=== PATIENT | male | born 1985 | race African-American/Black ===

== ENCOUNTER 2020-04-28 12:59 | Inpatient (IN) | payer SELFPAY ==
[2020-04-28] VITALS (16 sets, daily range): BP systolic 125–166; BP diastolic 71–114; PULSE 100–126; RESP 14–23; TEMP 37.1–37.3; O2SAT 97–100; BMI 32.6
--- NOTE | 2020-04-28 13:07 | DI.RAD.S_ITS ---
PROCEDURE: XR CHEST 1V INDICATIONS: chest pain TECHNIQUE: One view of the chest was acquired. COMPARISON: None. FINDINGS: Surgical changes and devices: None. Lungs and pleura: Lungs are clear. No pleural effusions or pneumothorax. Mediastinum: Mediastinal contours appear normal. Heart size is normal. Bones and chest wall: No suspicious bony lesions. Overlying soft tissues appear unremarkable. IMPRESSION: No acute cardiopulmonary pathology. Dictated by: Bridger Elder M.D. on 04/28/2020 at 13:46 Approved by: Bridger Elder M.D. on 04/28/2020 at 13:46
[2020-04-28 13:21] LABS: Hematocrit 37.4 % (41-53); Hemoglobin 12.6 g/dL (13.5-17.5); Mean Corpuscular HGB Conc 33.7 % (30-36); Mean Corpuscular Hemoglobin 31.4 PG (26-34); Mean Corpuscular Volume 93.3 fL (80-100); Platelet Count 342 X10^3/uL (150-400); Red Blood Cell Count 4.01 X10^6/uL (4.5-5.9); Red Cell Distribution Width 12.2 % (11.6-14.8)
[2020-04-28 13:24] LABS: Add Manual Diff / Slide Review YES
[2020-04-28 13:31] LABS: INR 1.6 (0.9-1.3)
[2020-04-28 13:33] LABS: PTT Partial Thromboplastin Tim 34 SECONDS (26.4-36.2)
[2020-04-28 13:36] LABS: Alanine Aminotransferase 37 IU/L (<50); Albumin 4.4 g/dL (3.5-5.0); Albumin Globulin Ratio 1.2 (1.0-2.8); Alkaline Phosphatase 94 U/L (38-126); Aspartate Aminotransferase 36 IU/L (17-59); BUN Creatinine Ratio 11.4 (6-22); Bilirubin Total 2.6 mg/dL (0.2-1.3); Blood Urea Nitrogen 14 mg/dL (9-20); Calcium 9.9 mg/dL (8.4-10.2); Carbon Dioxide 23 mmol/L (22-32); Chloride 103 mmol/L (98-107); Creatine Kinase 140 U/L (55-170); Estimated Glomerular Filt Rate > 60.0 mL/min (>60); Globulin 3.8 g/dL (1.7-4.1); Glucose 120 mg/dL (70-100); HEMOLYSIS < 15 (0-50); Lipase 19 U/L (23-300); Potassium 4.1 mmol/L (3.4-5.1); Sodium 134 mmol/L (137-145); Total Protein 8.2 g/dL (6.3-8.2)
[2020-04-28 13:48] LABS: Troponin I < 0.012 ng/mL (0.01-0.034)
[2020-04-28 13:51] LABS: CKMB % Relative Index 0.4 % (1.5-5.0); Creatine Kinase MB 0.52 ng/mL (<2.37)
[2020-04-28 13:53] LABS: Lactate (Lactic Acid) 1.4 mmol/L (0.7-2.1)
--- NOTE | 2020-04-28 13:55 | ED_ITS ---
HPI - Chest Pain General Chief Complaint: Chest Pain Stated Complaint: 'feeling sick' Time Seen by Provider: 04/28/20 13:24 Source: patient Mode of arrival: Ambulatory Limitations: no limitations History of Present Illness HPI narrative: Patient is a 34-year-old healthy male who presents with generalized body aches and pain ongoing for last couple of days. He states that he has had an ongoing nonproductive cough for the past few days. Generalized body aches in all over pain started yesterday. He has been taking TheraFlu but he did not take any today. He overall feels extremely weak and fatigued with body aches all over. He denies any fever or chills. He has a decrease in appetite. He has no abdominal pain nausea vomiting or diarrhea. No recent travel. No painful or frequent urination. No headache or neck pain. Related Data Allergies Allergy/AdvReac Type Severity Reaction Status Date / Time No Known Drug Allergies Allergy Verified 04/28/20 13:04 Review of Systems Review of Systems ROS Unobtainable: All systems reviewed & are unremarkable except as noted in HPI and below Constitutional Constitutional: Reports body ache(s), Reports chills, Reports fatigue and Reports poor appetite Eyes Eyes: Denies change in vision, Denies eye discharge, Denies irritation and Alfred es loss of vision ENT Ears, Nose, Mouth, and Throat: Denies vertigo and Denies dizziness Cardiovascular Cardiovascular: Denies chest pain, Denies irregular heart rhythm, Denies lightheadedness, Denies palpitations and Denies orthopnea Respiratory Respiratory: Reports cough Gastrointestinal Gastrointestinal: Denies abdominal pain, Denies change in bowel habits, Denies diarrhea, Denies nausea and Denies vomiting Integumentary/Breasts Skin/Breast: Denies pruritus, Denies erythema, Denies rash and Denies wounds Neurologic Neurologic: Denies vertigo, Denies dizziness and Denies loss of vision Endocrine Endocrine: Reports fatigue and Denies palpitations Patient History Social History household members: none Smoking Status: Current every day smoker Smoking Status: Current every day smoker alcohol intake frequency: 3 or more drinks per day Substance Use Type: does not use Exam Initial Vital Signs Initial Vital Signs: Vital Signs Temperature 98.8 F 04/28/20 13:04 Pulse Rate 126 H 04/28/20 13:04 Respiratory Rate 15 04/28/20 13:04 Blood Pressure 148/82 H 04/28/20 13:04 Pulse Oximetry 100 04/28/20 13:04 GENERAL: The patient overall does not appear to feel well and in no acute distress. HEENT: Head atraumatic,EOMI, pupils reactive, face symmetric, moist mucous membranes , negative Kernig's and Brudzinski CARDIOVASCULAR: Tachycardic regular RESPIRATORY: Breath sounds equal bilaterally, no wheezes rales or rhonchi. ABDOMEN: Soft, nontender. Normoactive bowel sounds all 4 quadrants. No guarding or rebound. EXTREMITIES: Normal range of motion, no clubbing or edema. Neurovascularly intact NEUROLOGICAL: Alert and oriented x4.Normal gait and speech SKIN: Warm, dry, no laceration, no petechiae, no rashes or lesions. Scores CURB-65 Confusion: No BUN >19mg/dL (>7mmol/L): No Respiratory rate greater or equal to 30: No SBP <90mmHg or DBP less or equal to 60mmHg: No Age 65 or Older: No CURB-65 Total: 0 Score 0-1 Outpatient care, Score 2 Inpt vs. Obs, Score 3 or over Inpt admit with ICU for score of 4-5 GCS [place] coma scale eye opening: Spontaneous [place] coma scale verbal response: Orientated Nathaniel coma scale motor response: Obey commands [place] coma scale total score: 15 qSOFA Altered Mental Status (GCS <15): No Respiratory rate greater than/equal to 22: No Systolic blood pressure less than or equal to 100: No qSOFA Total: 0 0-1 Not High Risk 1-3 High risk SOFA SaO2/FIO2: 221-301 Platelets: >= 150 Bilirubin: 2.0-5.9 mg/dL Hypotension: MAP >= 70 mmHg [place] Coma Scale: 15 Renal: Creatinine 1.2-1.9 mg/dL SOFA Score: 4 Course Orders Ordered: ED Orders 04/28/20 13:07 XR chest 1V Stat EKG-12 Lead Stat 04/28/20 13:10 Complete Blood Count AUTO DIFF Stat Comprehensive Metabolic Panel Stat Lactate (Lactic Acid) Stat Lipase Stat Partial Thromboplastin Time Stat Procalcitonin Stat Prothrombin Time INR Stat Troponin & CK Cardiac Panel Stat 04/28/20 13:35 COVID19 Stat 04/28/20 13:38 Blood Culture Stat 04/28/20 15:23 CT chest abd pel w con Stat 04/28/20 15:27 Respiratory Panel (Film Array) Stat Urinalysis and Microscopic Stat Urine Drug Screen, Rapid Stat Acetaminophen (Acetaminophen 325 Mg Tablet) 650 mg PO Q6HR PRN PRN Reason: Fever/Mild Pain (1-3) Al Hydrox/Mg Hydrox/Simethicone (Mag Hydrox/Alum/Simeth 30 Ml Udc) 30 ml PO Q6HR PRN PRN Reason: Dyspepsia Bisacodyl (Bisacodyl 10 Mg Supp) 10 mg MI DAILY PRN PRN Reason: Constipation Calcium Carbonate (Calcium Carbonate 500 Mg Tab) 1,000 mg PO Q4HR PRN PRN Reason: Dyspepsia Heparin Sodium (Porcine) (Heparin 5,000 Unit/Ml Vial) 5,000 unit SUBCUT BID JUSTIN Sodium Chloride (Normal Saline 0.9%) 1,000 mls @ 150 mls/hr IV CONT JUSTIN Last Infusion: 04/28/20 17:55 Dose: 150 mls/hr Documented by: Infusion: 04/28/20 16:51 Dose: 0 mls/hr Documented by: Admin: 04/28/20 16:39 Dose: 150 mls/hr Documented by: VENANCIO Piperacillin/Tazobactam/Dextrose (Zosyn) 3.375 gm in 50 mls @ 100 mls/hr IV Q6H JUSTIN Vancomycin HCl (Vancomycin) 1,000 mg in 200 mls @ 200 mls/hr IV Q8H JUSTIN Magnesium Hydroxide (Magnesium Hydroxide 30 Ml Udc) 30 ml PO DAILY PRN PRN Reason: Constipation Naloxone HCl (Naloxone 0.4 Mg/Ml Vial) 0.2 mg IV Q2MIN PRN PRN Reason: Opiate Reversal Ondansetron HCl (Ondansetron 4 Mg/2 Ml Inj) 4 mg IV Q8HR PRN PRN Reason: Nausea And Vomiting Promethazine HCl (Promethazine 12.5 Mg Supp) 12.5 mg MI Q6HR PRN PRN Reason: Nausea And Vomiting Vancomycin HCl (Vancomycin Trough) 1 request MIS 1630 [facility] Stop: 04/29/20 16:31 Discontinued Medications Albuterol (Albuterol Hfa Mdi 60 Puff/8 Gm Inhaler) 2 puff INH NOW ONE Stop: 04/28/20 17:23 Last Admin: 04/28/20 17:38 Dose: 2 puff Documented by: [facility] Sodium Chloride (Normal Saline 0.9%) 1,000 mls @ 1,000 mls/hr IV BOLUS ONE Stop: 04/28/20 15:18 Last Infusion: 04/28/20 16:00 Dose: 0 mls/hr Documented by: Admin: 04/28/20 14:35 Dose: 1,000 mls/hr Documented by: VENANCIO Piperacillin/Tazobactam/Dextrose (Zosyn) 3.375 gm in 50 mls @ 100 mls/hr IV NOW ONE Stop: 04/28/20 14:50 Last Infusion: 04/28/20 15:07 Dose: 0 mls/hr Documented by: Admin: 04/28/20 14:35 Dose: 100 mls/hr Documented by: VENANCIO Sodium Chloride (Normal Saline 0.9%) 1,000 mls @ 1,000 mls/hr IV BOLUS ONE Stop: 04/28/20 16:30 Last Infusion: 04/28/20 17:55 Dose: 0 mls/hr Documented by: Admin: 04/28/20 16:11 Dose: 1,000 mls/hr Documented by: VENANCIO Vancomycin HCl/Dextrose (Vancomycin) 1,500 mg in 300 mls @ 200 mls/hr IV NOW ONE Stop: 04/28/20 18:31 Last Admin: 04/28/20 17:19 Dose: 200 mls/hr Documented by: VENANCIO Ketorolac Tromethamine (Ketorolac 60 Mg/2 Ml Vial) 30 mg IV NOW ONE Stop: 04/28/20 16:34 Last Admin: 04/28/20 16:38 Dose: 30 mg Documented by: VENANCIO Morphine Sulfate (Morphine 4 Mg/Ml Inj) 4 mg IV NOW ONE Stop: 04/28/20 14:20 Last Admin: 04/28/20 14:35 Dose: 4 mg Documented by: VENANCIO Vital Signs Vital signs: Vital Signs - 8 hr 04/28/20 13:04 04/28/20 14:39 12/31/20 15:00 Temperature 98.8 F Pulse Rate 126 H 113 H Respiratory Rate 15 15 Blood Pressure 148/82 H 149/103 H 126/90 Pulse Oximetry 100 100 99 04/28/20 15:30 04/28/20 15:49 04/28/20 16:00 Temperature Pulse Rate 112 H 111 H 109 H Respiratory Rate 18 16 18 Blood Pressure 139/85 125/71 Pulse Oximetry 100 100 99 04/28/20 16:30 04/28/20 16:48 04/28/20 17:00 Temperature Pulse Rate 107 H 105 H 107 H Respiratory Rate 23 18 Blood Pressure 165/97 H 166/104 H Pulse Oximetry 99 99 99 MDM - Chest Pain Lab Data Attestation: I reviewed the patient's lab results. Result diagrams: 04/28/20 13:10 04/28/20 13:10 Labs: Lab Results 04/28/20 04/28/20 04/28/20 Range/Units 13:10 13:10 13:10 WBC 31.0 H* (4.5-11.0) X10^3/uL RBC 4.01 L (4.5-5.9) X10^6/uL Hgb 12.6 L (13.5-17.5) g/dL Hct 37.4 L (41-53) % MCV 93.3 (80-100) fL MCH 31.4 (26-34) PG MCHC 33.7 (30-36) % RDW 12.2 (11.6-14.8) % Plt Count 342 (150-400) X10^3/uL Neut % (Auto) Not Reportable Lymph % (Auto) Not Reportable Long % (Auto) Not Reportable Eos % (Auto) Not Reportable Baso % (Auto) Not Reportable Lymph # (Auto) Not Reportable Long # (Auto) Not Reportable Baso # (Auto) Not Reportable Total Counted 100 Seg Neutrophils % 72.0 H (38-70) % Band Neutrophils % 13.0 H (3-7) % Lymphocytes % (Manual) 4.0 L (25-45) % Monocytes % (Manual) 9.0 (2-11) % Metamyelocytes % 2.0 H (-0) % Neutrophils # (Manual) 42753 H (3560-6051) /uL RBC Morphology Normal morphology PT 18.0 H (10.1-12.7) SECONDS INR 1.6 H (0.9-1.3) APTT 34 (26.4-36.2) SECONDS Sodium 134 L (137-145) mmol/L Potassium 4.1 (3.4-5.1) mmol/L Chloride 103 (98-107) mmol/L Carbon Dioxide 23 (22-32) mmol/L BUN 14 (9-20) mg/dL Creatinine 1.23 (0.66-1.25) mg/dL Estimated GFR > 60.0 (>60) mL/min BUN/Creatinine Ratio 11.4 (6-22) Glucose 120 H (70-100) mg/dL Lactate (0.7-2.1) mmol/L Calcium 9.9 (8.4-10.2) mg/dL Total Bilirubin 2.6 H (0.2-1.3) mg/dL AST 36 (17-59) IU/L ALT 37 (<50) IU/L Alkaline Phosphatase 94 (38-126) U/L Total Creatine Kinase 140 (55-170) U/L CK-MB (CK-2) 0.52 (<2.37) ng/mL CK-MB (CK-2) Rel Index 0.4 L (1.5-5.0) % Troponin I < 0.012 (0.01-0.034) ng/mL Total Protein 8.2 (6.3-8.2) g/dL Albumin 4.4 (3.5-5.0) g/dL Globulin 3.8 (1.7-4.1) g/dL Albumin/Globulin Ratio 1.2 (1.0-2.8) Lipase 19 L (23-300) U/L Procalcitonin (<0.5) ng/mL Urine Color Urine Appearance Urine pH (4.5-8.0) Ur Specific [place] (1.000-1.035) Urine Protein (Negative) Urine Glucose (UA) (Negative) g/dL Urine Ketones (NEGATIVE) Urine Occult Blood (Negative) Urine Nitrate (Negative) Urine Bilirubin (NEGATIVE) Urine Urobilinogen (0.2) E.U./dL Ur Leukocyte Esterase (NEGATIVE) Urine RBC (0-5/HPF) Urine WBC (0-5/HPF) Urine Bacteria (None) Ur Culture Indicated? Micro UA Comment U Opiates 300ng/mL cut (Negative) Ur Oxycodone Screen (Negative) Urine Methadone Screen (Negative) Ur Barbiturates Screen (Negative) U Tricyclic Antidepress (Negative) Ur Phencyclidine Scrn (Negative) Ur Amphetamines Screen (Negative) U Methamphetamines Scrn (Negative) Ur MDMA Scrn (Ecstasy) (Negative) U Benzodiazepines Scrn (Negative) Urine Cocaine Screen (Negative) U Marijuana (THC) Screen (Negative) Chlamy pneumoniae PCR (Not Detect) Adenovirus (PCR) (Not Detect) B.parapertussis DNA PCR (Not Detect) Coronavirus OC43 (PCR) (Not Detect) Coronavirus HKU1 (PCR) (Not Detect) Coronavirus 229E (PCR) (Not Detect) SARS-CoV-2 (PCR) (Negative) Coronavirus NL63 (PCR) (Not Detect) Human Metapneumovir PCR (Not Detect) Influenza Type A (PCR) (Not Detect) Influenza Type B (PCR) (Not Detect) M. pneumoniae (PCR) (Not Detect) Parainfluenza 1 (PCR) (Not Detect) Parainfluenza 2 (PCR) (Not Detect) Parainfluenza 3 (PCR) (Not Detect) Parainfluenza 4 (PCR) (Not Detect) RSV (PCR) (Not Detect) Entero/Rhino (PCR) (Not Detect) 04/28/20 04/28/20 04/28/20 Range/Units 13:10 13:10 13:35 WBC (4.5-11.0) X10^3/uL RBC (4.5-5.9) X10^6/uL Hgb (13.5-17.5) g/dL Hct (41-53) % MCV (80-100) fL MCH (26-34) PG MCHC (30-36) % RDW (11.6-14.8) % Plt Count (150-400) X10^3/uL Neut % (Auto) Lymph % (Auto) Long % (Auto) Eos % (Auto) Baso % (Auto) Lymph # (Auto) Long # (Auto) Baso # (Auto) Total Counted Seg Neutrophils % (38-70) % Band Neutrophils % (3-7) % Lymphocytes % (Manual) (25-45) % Monocytes % (Manual) (2-11) % Metamyelocytes % (-0) % Neutrophils # (Manual) (6931-6645) /uL RBC Morphology PT (10.1-12.7) SECONDS INR (0.9-1.3) APTT (26.4-36.2) SECONDS Sodium (137-145) mmol/L Potassium (3.4-5.1) mmol/L Chloride (98-107) mmol/L Carbon Dioxide (22-32) mmol/L BUN (9-20) mg/dL Creatinine (0.66-1.25) mg/dL Estimated GFR (>60) mL/min BUN/Creatinine Ratio (6-22) Glucose (70-100) mg/dL Lactate 1.4 (0.7-2.1) mmol/L Calcium (8.4-10.2) mg/dL Total Bilirubin (0.2-1.3) mg/dL AST (17-59) IU/L ALT (<50) IU/L Alkaline Phosphatase (38-126) U/L Total Creatine Kinase (55-170) U/L CK-MB (CK-2) (<2.37) ng/mL CK-MB (CK-2) Rel Index (1.5-5.0) % Troponin I (0.01-0.034) ng/mL Total Protein (6.3-8.2) g/dL Albumin (3.5-5.0) g/dL Globulin (1.7-4.1) g/dL Albumin/Globulin Ratio (1.0-2.8) Lipase (23-300) U/L Procalcitonin 2.92 H (<0.5) ng/mL Urine Color Urine Appearance Urine pH (4.5-8.0) Ur Specific [place] (1.000-1.035) Urine Protein (Negative) Urine Glucose (UA) (Negative) g/dL Urine Ketones (NEGATIVE) Urine Occult Blood (Negative) Urine Nitrate (Negative) Urine Bilirubin (NEGATIVE) Urine Urobilinogen (0.2) E.U./dL Ur Leukocyte Esterase (NEGATIVE) Urine RBC (0-5/HPF) Urine WBC (0-5/HPF) Urine Bacteria (None) Ur Culture Indicated? Micro UA Comment U Opiates 300ng/mL cut (Negative) Ur Oxycodone Screen (Negative) Urine Methadone Screen (Negative) Ur Barbiturates Screen (Negative) U Tricyclic Antidepress (Negative) Ur Phencyclidine Scrn (Negative) Ur Amphetamines Screen (Negative) U Methamphetamines Scrn (Negative) Ur MDMA Scrn (Ecstasy) (Negative) U Benzodiazepines Scrn (Negative) Urine Cocaine Screen (Negative) U Marijuana (THC) Screen (Negative) Chlamy pneumoniae PCR (Not Detect) Adenovirus (PCR) (Not Detect) B.parapertussis DNA PCR (Not Detect) Coronavirus OC43 (PCR) (Not Detect) Coronavirus HKU1 (PCR) (Not Detect) Coronavirus 229E (PCR) (Not Detect) SARS-CoV-2 (PCR) Negative (Negative) Coronavirus NL63 (PCR) (Not Detect) Human Metapneumovir PCR (Not Detect) Influenza Type A (PCR) (Not Detect) Influenza Type B (PCR) (Not Detect) M. pneumoniae (PCR) (Not Detect) Parainfluenza 1 (PCR) (Not Detect) Parainfluenza 2 (PCR) (Not Detect) Parainfluenza 3 (PCR) (Not Detect) Parainfluenza 4 (PCR) (Not Detect) RSV (PCR) (Not Detect) Entero/Rhino (PCR) (Not Detect) 04/28/20 04/28/20 04/28/20 Range/Units 15:27 15:27 15:27 WBC (4.5-11.0) X10^3/uL RBC (4.5-5.9) X10^6/uL Hgb (13.5-17.5) g/dL Hct (41-53) % MCV (80-100) fL MCH (26-34) PG MCHC (30-36) % RDW (11.6-14.8) % Plt Count (150-400) X10^3/uL Neut % (Auto) Lymph % (Auto) Long % (Auto) Eos % (Auto) Baso % (Auto) Lymph # (Auto) Long # (Auto) Baso # (Auto) Total Counted Seg Neutrophils % (38-70) % Band Neutrophils % (3-7) % Lymphocytes % (Manual) (25-45) % Monocytes % (Manual) (2-11) % Metamyelocytes % (-0) % Neutrophils # (Manual) (9324-4268) /uL RBC Morphology PT (10.1-12.7) SECONDS INR (0.9-1.3) APTT (26.4-36.2) SECONDS Sodium (137-145) mmol/L Potassium (3.4-5.1) mmol/L Chloride (98-107) mmol/L Carbon Dioxide (22-32) mmol/L BUN (9-20) mg/dL Creatinine (0.66-1.25) mg/dL Estimated GFR (>60) mL/min BUN/Creatinine Ratio (6-22) Glucose (70-100) mg/dL Lactate (0.7-2.1) mmol/L Calcium (8.4-10.2) mg/dL Total Bilirubin (0.2-1.3) mg/dL AST (17-59) IU/L ALT (<50) IU/L Alkaline Phosphatase (38-126) U/L Total Creatine Kinase (55-170) U/L CK-MB (CK-2) (<2.37) ng/mL CK-MB (CK-2) Rel Index (1.5-5.0) % Troponin I (0.01-0.034) ng/mL Total Protein (6.3-8.2) g/dL Albumin (3.5-5.0) g/dL Globulin (1.7-4.1) g/dL Albumin/Globulin Ratio (1.0-2.8) Lipase (23-300) U/L Procalcitonin (<0.5) ng/mL Urine Color Yellow Urine Appearance Clear Urine pH 7.0 (4.5-8.0) Ur Specific [place] <=1.005 (1.000-1.035) Urine Protein Negative (Negative) Urine Glucose (UA) Negative (Negative) g/dL Urine Ketones Negative (NEGATIVE) Urine Occult Blood Negative (Negative) Urine Nitrate Negative (Negative) Urine Bilirubin Negative (NEGATIVE) Urine Urobilinogen 0.2 (0.2) E.U./dL Ur Leukocyte Esterase Negative (NEGATIVE) Urine RBC None seen (0-5/HPF) Urine WBC None seen (0-5/HPF) Urine Bacteria None seen (None) Ur Culture Indicated? Cult not indicated Micro UA Comment Microscopic normal U Opiates 300ng/mL cut Positive H (Negative) Ur Oxycodone Screen Negative (Negative) Urine Methadone Screen Negative (Negative) Ur Barbiturates Screen Negative (Negative) U Tricyclic Antidepress Negative (Negative) Ur Phencyclidine Scrn Negative (Negative) Ur Amphetamines Screen Positive H (Negative) U Methamphetamines Scrn Positive H (Negative) Ur MDMA Scrn (Ecstasy) Negative (Negative) U Benzodiazepines Scrn Negative (Negative) Urine Cocaine Screen Negative (Negative) U Marijuana (THC) Screen Negative (Negative) Chlamy pneumoniae PCR Not detected (Not Detect) Adenovirus (PCR) Not detected (Not Detect) B.parapertussis DNA PCR Not detected (Not Detect) Coronavirus OC43 (PCR) Not detected (Not Detect) Coronavirus HKU1 (PCR) Not detected (Not Detect) Coronavirus 229E (PCR) Not detected (Not Detect) SARS-CoV-2 (PCR) Not detected (Negative) Coronavirus NL63 (PCR) Not detected (Not Detect) Human Metapneumovir PCR Not detected (Not Detect) Influenza Type A (PCR) Not detected (Not Detect) Influenza Type B (PCR) Not detected (Not Detect) M. pneumoniae (PCR) Not detected (Not Detect) Parainfluenza 1 (PCR) Not detected (Not Detect) Parainfluenza 2 (PCR) Not detected (Not Detect) Parainfluenza 3 (PCR) Not detected (Not Detect) Parainfluenza 4 (PCR) Not detected (Not Detect) RSV (PCR) Not detected (Not Detect) Entero/Rhino (PCR) Not detected (Not Detect) Imaging Data Chest x-ray: Radiologist's Impression: PROCEDURE: XR CHEST 1V INDICATIONS: chest pain TECHNIQUE: One view of the chest was acquired. COMPARISON: None. FINDINGS: Surgical changes and devices: None. Lungs and pleura: Lungs are clear. No pleural effusions or pneumothorax. Mediastinum: Mediastinal contours appear normal. Heart size is normal. Bones and chest wall: No suspicious bony lesions. Overlying soft tissues appear unremarkable. IMPRESSION: No acute cardiopulmonary pathology. Dictated by: Bridger Elder M.D. on 04/28/2020 at 13:46 CT scan - chest: Radiologist's Impression: PROCEDURE: CT CHEST ABD PEL W CON INDICATIONS: fever high WBC TECHNIQUE: After the administration of intravenous contrast, 5 mm thick sections acquired from the lung apices to the symphysis. 5 mm coronal and sagittal reformats were perfor med, with additional 7 mm MIP reformats through the lungs. For radiation dose reduction, the following was used: automated exposure control, adjustment of mA and/or kV according to patient size. COMPARISON: None. FINDINGS: Image quality: Excellent. CHEST: Lungs and pleura: Moderate to large airspace opacity measures 6.9 x 6.7 cm in size is seen in medial aspect of right lower lobe/right retrocardiac region extending to right infrahilar region. Left lung is clear. No pleural effusions or pneumothorax. Central and peripheral airways appear patent and normal in caliber. Mediastinum: Heart size is normal. No pericardial effusion. Enlarged mediastinal and right hilar lymph nodes are seen measures up to 1 cm in short axis diameter. Thoracic aorta and central pulmonary arteries are normal in size. Esophagus is normal in caliber. No hiatal hernia. Chest wall: No axillary or supraclavicular adenopathy by size criteria. Subcentimeter bilateral axillary lymph nodes are seen. Thyroid gland is within normal limits. ABDOMEN: Solid organs: Liver is normal in size and enhancement. Mild hepatic steatosis is seen. No discrete hepatic lesion. Gallbladder is within normal limits. Biliary system is non dilated. Pancreas enhances normally. Spleen is normal in size and enhancement. No adrenal nodules. Kidneys demonstrate normal size and enhancement, without hydronephrosis. Peritoneum and bowel: Bowel loops demonstrate normal wall thickness and yasemin iber. No free fluid or air. Appendix is visualized and is within normal limits. Nodes and vessels: No retroperitoneal or mesenteric adenopathy by size criteria. Aorta and inferior vena cava are normal in size. Miscellaneous: No ventral hernias. PELVIS: Genitourinary: Bladder wall thickness is normal. Miscellaneous: No inguinal hernias or adenopathy. Bones: No suspicious bony lesions. No vertebral body compression fractures. IMPRESSION: 1. Moderate to large sized airspace opacity in medial right lower lobe/right retrocardiac space extending to right infrahilar region suggestive of right lower lobe infiltrate. Left lung is clear. No pleural effusion or pneumothorax. Airway is patent. 2. Enlarged mediastinal and right hilar lymph nodes suggestive of reactive i nflammatory nodes. 3. No acute inflammatory process is seen in abdomen or pelvis. No free fluid or free air. Normal appendix. 4. Hepatic steatosis. Dictated by: Bridger Elder M.D. on 04/28/2020 at 15:55 ECG Data Attestation: I personally reviewed and interpreted this ECG as follows: Prior ECG tracings: not available for review Interpretation: Sinus tachycardia rate [address] changes or T-wave inversions no priors to compare MDM Narrative Medical decision making narrative: The patient is persistently tachycardic but remains afebrile. His heart rate does improve with IV fluids and pain medicatio ns. He is found to have significant leukocytosis of 30,000 and elevated procalcitonin. A chest x-ray did not show any sign of pneumonia although her signs and symptoms were suspicious. CT does confirm right lower lobe pneumonia. He has no evidence of meningitis or other infectious etiology. He is started on Zosyn and vancomycin. He does deny methamphetamine use but he is positive in his drug screen for methamphetamine. He was given a dose of morphine in the ED to help with his pains. Dr. coto accepts patient for admission Discharge Plan Departure Patient Disposition: Admitted As Inpatient Clinical Impression: Pneumonia Qualifiers: Pneumonia type: due to unspecified organism Laterality: right Lung location: lower lobe of lung Qualified Code(s): J18.9 - Pneumonia, unspecified organism Admit Date/Time: 04/28/20 17:16 Admit Provider: Leslye Coto
[2020-04-28 13:57] LABS: COVID19 -Nasal RAPID Negative (Negative)
[2020-04-28 14:06] LABS: Neutrophils Absolute Manual 26350 /uL (3000-5900); Total Cells Counted 100
[2020-04-28 14:08] LABS: RBC Morphology Normal Morphology
[2020-04-28 14:14] LABS: Procalcitonin 2.92 ng/mL (<0.5)
[2020-04-28] MEDS: SODIUM CHLORIDE 0.9% 1,000 ML 1000 ML IV ×2 (14:35→16:11)
[2020-04-28] MEDS: MORPHINE 4 MG/ML INJ IV (14:35)
[2020-04-28] MEDS: PIPERACILLIN-TAZO 3.375 GM/50 ML FROZ.PIGGY IV ×2 (14:35→21:34)
--- NOTE | 2020-04-28 15:23 | DI.CT.S_ITS ---
PROCEDURE: CT CHEST ABD PEL W CON INDICATIONS: fever high WBC TECHNIQUE: After the administration of intravenous contrast, 5 mm thick sections acquired from the lung apices to the symphysis. 5 mm coronal and sagittal reformats were performed, with additional 7 mm MIP reformats through the lungs. For radiation dose reduction, the following was used: automated exposure control, adjustment of mA and/or kV according to patient size. COMPARISON: None. FINDINGS: Image quality: Excellent. CHEST: Lungs and pleura: Moderate to large airspace opacity measures 6.9 x 6.7 cm in size is seen in medial aspect of right lower lobe/right retrocardiac region extending to right infrahilar region. Left lung is clear. No pleural effusions or pneumothorax. Central and peripheral airways appear patent and normal in caliber. Mediastinum: Heart size is normal. No pericardial effusion. Enlarged mediastinal and right hilar lymph nodes are seen measures up to 1 cm in short axis diameter. Thoracic aorta and central pulmonary arteries are normal in size. Esophagus is normal in caliber. No hiatal hernia. Chest wall: No axillary or supraclavicular adenopathy by size criteria. Subcentimeter bilateral axillary lymph nodes are seen. Thyroid gland is within normal limits. ABDOMEN: Solid organs: Liver is normal in size and enhancement. Mild hepatic steatosis is seen. No discrete hepatic lesion. Gallbladder is within normal limits. Biliary system is non dilated. Pancreas enhances normally. Spleen is normal in size and enhancement. No adrenal nodules. Kidneys demonstrate normal size and enhancement, without hydronephrosis. Peritoneum and bowel: Bowel loops demonstrate normal wall thickness and caliber. No free fluid or air. Appendix is visualized and is within normal limits. Nodes and vessels: No retroperitoneal or mesenteric adenopathy by size criteria. Aorta and inferior vena cava are normal in size. Miscellaneous: No ventral hernias. PELVIS: Genitourinary: Bladder wall thickness is normal. Miscellaneous: No inguinal hernias or adenopathy. Bones: No suspicious bony lesions. No vertebral body compression fractures. IMPRESSION: 1. Moderate to large sized airspace opacity in medial right lower lobe/right retrocardiac space extending to right infrahilar region suggestive of right lower lobe infiltrate. Left lung is clear. No pleural effusion or pneumothorax. Airway is patent. 2. Enlarged mediastinal and right hilar lymph nodes suggestive of reactive inflammatory nodes. 3. No acute inflammatory process is seen in abdomen or pelvis. No free fluid or free air. Normal appendix. 4. Hepatic steatosis. Dictated by: Bridger Elder M.D. on 04/28/2020 at 15:55 Approved by: Bridger Elder M.D. on 04/28/2020 at 16:05
[2020-04-28 15:42] LABS: Bacteria Urine None Seen; RBC Urine None Seen (0-5/HPF); WBC Urine None Seen (0-5/HPF)
[2020-04-28 15:45] LABS: Appearance Urine UA CLEAR; Bilirubin Urine UA NEGATIVE (NEGATIVE); Color Urine UA YELLOW; Glucose Urine UA NEGATIVE (Negative); Ketones Urine UA NEGATIVE (NEGATIVE); Leukocyte Esterase Urine UA NEGATIVE (NEGATIVE); Nitrite Urine UA NEGATIVE (Negative); Occult Blood Urine UA NEGATIVE (Negative); Protein Urine UA NEGATIVE (Negative); Specific Gravity Urine UA <=1.005 (1.000-1.035); Urobilinogen Urine UA 0.2 E.U./dL (0.2)
[2020-04-28 15:47] LABS: Culture Indicated Urine Cult Not Indicated; Urine Comments Microscopic Normal
--- NOTE | 2020-04-28 16:07 | PC.NURSE ---
patient complains of tenderness on the right side of his neck that radiates down to his right collar bone and right pectoral muscle. There is noticeable swelling with associated tenderness medial to his right clavicle. He states that he does not have any known injury to this area.
--- NOTE | 2020-04-28 16:16 | PC.NURSE ---
the patient also states that his bilateral flanks are aching and the aching goes down his legs on both side. He has no known injuries.
[2020-04-28] MEDS: KETOROLAC 60 MG/2 ML VIAL 30 MG IV (16:38)
[2020-04-28] MEDS: SODIUM CHLORIDE 0.9% 1,000 ML 150 ML IV (16:39)
[2020-04-28 16:56] LABS: Adenovirus Not Detected (Not Detect); Bordetella pertussis Not Detected (Not Detect); Chlamydophila pneumoniae Not Detected (Not Detect); Coronavirus 229E Not Detected (Not Detect); Coronavirus HKU1 Not Detected (Not Detect); Coronavirus NL 63 Not Detected (Not Detect); Coronavirus OC43 Not Detected (Not Detect); Human Metapneumovirus Not Detected (Not Detect); Human Rhinovirus/Enterovirus Not Detected (Not Detect); Influenza A Not Detected (Not Detect); Influenza B Not Detected (Not Detect); Mycoplasma pneumoniae Not Detected (Not Detect); Parainfluenza Virus 1 Not Detected (Not Detect); Parainfluenza Virus 2 Not Detected (Not Detect); Parainfluenza Virus 3 Not Detected (Not Detect); Parainfluenza Virus 4 Not Detected (Not Detect); Respiratory Syncytial Virus Not Detected (Not Detect); SARS- CoV-2 Not Detected (Not Detecte)
[2020-04-28] MEDS: VANCOMYCIN 1,500 MG/300 ML PIGGYBACK 200 MG IV (17:19)
[2020-04-28] MEDS: ALBUTEROL HFA MDI 60 PUFF/8 GM INHALER INH (17:38)
[2020-04-28 17:39] LABS: UR Morphine/Opiate cutoff 300 Positive (Negative); Ur Creatinine Normal (Normal); Ur Specific Gravity Normal (Normal); Urine Amphetamines Positive (Negative); Urine Barbiturates Negative (Negative); Urine Benzodiazepines Negative (Negative); Urine Cocaine Negative (Negative); Urine MDMA Negative (Negative); Urine Methadone Negative (Negative); Urine Methamphetamines Positive (Negative); Urine Oxycodone Negative (Negative); Urine Phencyclidine Negative (Negative); Urine Tetrahydrocannabinol Negative (Negative); Urine Tricyclic Antidepressant Negative (Negative); Urine pH Normal (Normal)
[2020-04-28] MEDS: HEPARIN 5,000 UNIT/ML VIAL 5000 UNIT SUBCUT (21:34)
[2020-04-28] MEDS: HYDROCODONE/ACET 5/325 TABLET 2 TAB PO (21:49)
[2020-04-28] MEDS: MORPHINE 2 MG/ML INJ IV (23:37)
[2020-04-29] VITALS (15 sets, daily range): BP systolic 150–188; BP diastolic 34–132; PULSE 86–118; RESP 16–24; TEMP 36.3–37.1; O2SAT 95–99
[2020-04-29] MEDS: VANCOMYCIN 1,000 MG/200 ML PIGGYBACK 200 MG IV ×3 (00:33→17:02)
[2020-04-29] MEDS: PIPERACILLIN-TAZO 3.375 GM/50 ML FROZ.PIGGY IV ×4 (01:48→20:57)
[2020-04-29] MEDS: LORazepam 2 MG/ML INJ IV (03:18)
[2020-04-29] MEDS: HYDROCODONE/ACET 5/325 TABLET 2 TAB PO ×3 (03:18→21:28)
[2020-04-29] MEDS: SODIUM CHLORIDE 0.9% 1,000 ML 150 ML IV ×2 (03:26→13:16)
--- NOTE | 2020-04-29 04:59 | PM.HP.1 ---
History of Present Illness History of Present Illness Chief complaint: 'feeling sick' Narrative: Patient is a 34-year-old healthy male who presents with generalized body aches and pain ongoing for last couple of days. He states that he has had an ongoing nonproductive cough for the past few days. Generalized body aches, dizziness, headache, and mildly productive cough started yesterday. He has been taking TheraFlu but he did not take any today. He overall feels extremely weak and fatigued with body aches all over. He denies any fever or chills. He has a decrease in appetite. He has no abdominal pain, nausea, vomiting, diarrhea, chest pain, shortness of breath, weakness balance or coordination issues, yellowing of skin. No recent travel, illness, injury or trauma. No painful or frequent urination or bowel change. Patient reports a history of sleep apnea and uses CPAP machine at than that denies any other history drinks approximately 1-2 beers daily smokes half a pack of cigarettes per day and denies substance use the urine tox screen was positive for methamphetamines and narcotics. Patient presented to the ER with a temperature of 98.8?, BP 153/73, HR to 126, RR 13, O2 saturation on room air 100%, WBC 31.0 with bands of 13 left shift, hemoglobin 12.6, hematocrit 37.4, procalcitonin 2.92, CK-MB 0.4, lipase 19. CT Chest/ABD/Pelvis: Demonstrated Moderate to large sized airspace opacity in medial right lower lobe/right retrocardiac space extending to right infrahilar region suggestive of right lower lobe infiltrate. Left lung is clear. No pleural effusion or pneumothorax. Airway is patent. Enlarged mediastinal and right hilar lymph nodes suggestive of reactive inflammatory nodes. Patient was admitted to acute care medical service for left lower lobe pneumonia/sepsis. Patient History Medical History (Updated 04/29/20 @ 05:11 by JUAN MANUEL Ramon) Methamphetamine abuse Narcotic abuse Sleep apnea Tobacco abuse Surgical History (Updated 04/29/20 @ 05:12 by JUAN MANUEL Ramon) Hx of hand surgery Family & Social History Family History (Updated 04/29/20 @ 05:13 by JUAN MANUEL Ramon) Father Pancreatic cancer Social History: household members Prior Living Arrangements Mobile home Safety & Behavioral: Feels Safe in Current Yes Environment Been Physically Hurt or No Threatened By a Person Tobacco & Substance use: Tobacco type cigarettes Smoking Status Current every day smoker Smoking packs per day 0.5 alcohol intake frequency 3 or more drinks per day Substance Use Type does not use Meds Home Medications and Allergies Allergies Allergy/AdvReac Type Severity Reaction Status Date / Time No Known Drug Allergies Allergy Verified 04/28/20 13:04 Review of Systems Review of Systems ROS: Yes All systems reviewed with the patient and are negative except as otherwise documented Constitutional Constitutional: Reports fatigue, Reports headache(s), Reports lethargy, Reports poor appetite, Reports stops breathing during sleep and Reports weakness Eyes Eyes: Reports system reviewed and no additional complaints, except as documented ENT Ears, Nose, Mouth, and Throat: Yes system reviewed and no additional complaints, except as documented and Yes headache(s) Cardiovascular Cardiovascular: Reports chest pain, Reports chest pain at rest, Reports dyspnea, Reports dyspnea on exertion and Reports orthopnea Respiratory Respiratory: Reports system reviewed and no additional complaints, except as documented, Reports cough, Reports pain with cough, Reports dyspnea and Reports dyspnea on exertion Gastrointestinal Gastrointestinal: Reports system reviewed and no additional complaints, except as documented Genitourinary Genitourinary: Reports system reviewed and no additional complaints, except as documented Musculoskeletal Musculoskeletal: Reports system reviewed and no additional complaints, except as documented and Reports myalgias Integumentary/Breasts Skin/Breast: Reports system reviewed and no additional complaints, except as documented Neurologic Neurologic: Reports system reviewed and no additional complaints, except as documented, Reports headache(s) and Reports weakness Psychiatric Psychiatric: Reports system reviewed and no additional complaints, except as documented Endocrine Endocrine: Reports system reviewed and no additional complaints, except as documented and Reports fatigue Hematologic/Lymphatic Hematologic/Lymphatic: Reports system reviewed and no additional complaints, except as documented Allergic/Immunologic Allergic/Immunologic: Reports system reviewed and no additional complaints, except as documented Exam Vital Signs (past 8 hours): - 04/28/20 23:30 04/28/20 23:48 04/29/20 03:58 Temperature 99.1 F Pulse Rate 118 H 118 H Respiratory Rate 14 18 Blood Pressure 154/106 H 154/106 H Pulse Oximetry 98 97 Oxygen Delivery Method Room Air Oxygen Flow Rate 0 Narrative Exam Narrative: General: Patient is a large stature male, well-developed, well-nourished in no distress at this time. Patient appeared extremely fatigued and exhausted upon exam. HEENT: Normocephalic, atraumatic, extraocular muscles intact, oral pharynx is clear and mucous membranes are moist. Neck is supple and symmetric, trachea is midline, no adenopathy, no thyroid enlargement, nontender, no masses palpated. Negative for JVD Chest: Normal AP diameter and contour without kyphoscoliosis, no nasal flaring, retractions, or tachypneic labored Lungs: Auscultation of all lung nails are decreased but equal without adventitious sounds, wheezes, rhonchi, or rales. Cardio: S1 & S2 with regular rate and rhythm without murmur, rubs, or gallops, no carotid bruit, no cardiac pulsations present. Abdomen: Soft nontender, negative for organomegaly, or masses. Bowel sounds are present in all 4 quadrants without guarding or rebound, no CVA tenderness. Musculoskeletal: Muscle strength and tone are equal within normal limits, no deformity, Daniel crepitus, effusions, cyanosis, clubbing or edema present. Full range of motion intact radial and pedal pulses are normal. Skin: Warm dry and intact without rashes, ulcerations or petechiae. Neuro: Alert and orientated x3, strength is +5/5 in all extremities, sensation to touch intact, no gross deficits noted of cranial nerves. Psych: Patient has a well-kept appearance, appropriate affect, mental status attitude thought context and judgment are appropriate for age. Objective Labs Result Diagrams: 04/28/20 13:10 04/28/20 13:10 Labs: Laboratory Results - last 24 hr 04/28/20 04/28/20 04/28/20 13:10 13:10 13:10 WBC 31.0 H* RBC 4.01 L Hgb 12.6 L Hct 37.4 L MCV 93.3 MCH 31.4 MCHC 33.7 RDW 12.2 Plt Count 342 Neut % (Auto) Not Reportable Lymph % (Auto) Not Reportable [place] % (Auto) Not Reportable Eos % (Auto) Not Reportable Baso % (Auto) Not Reportable Lymph # (Auto) Not Reportable [place] # (Auto) Not Reportable Baso # (Auto) Not Reportable Total Counted 100 Seg Neutrophils % 72.0 H Band Neutrophils % 13.0 H Lymphocytes % (Manual) 4.0 L Monocytes % (Manual) 9.0 Metamyelocytes % 2.0 H Neutrophils # (Manual) 15718 H RBC Morphology Normal morphology PT 18.0 H INR 1.6 H APTT 34 Sodium 134 L Potassium 4.1 Chloride 103 Carbon Dioxide 23 BUN 14 Creatinine 1.23 Estimated GFR > 60.0 BUN/Creatinine Ratio 11.4 Glucose 120 H Lactate Calcium 9.9 Total Bilirubin 2.6 H AST 36 ALT 37 Alkaline Phosphatase 94 Total Creatine Kinase 140 CK-MB (CK-2) 0.52 CK-MB (CK-2) Rel Index 0.4 L Troponin I < 0.012 Total Protein 8.2 Albumin 4.4 Globulin 3.8 Albumin/Globulin Ratio 1.2 Lipase 19 L Procalcitonin Urine Color Urine Appearance Urine pH Ur Specific [place] Urine Protein Urine Glucose (UA) Urine Ketones Urine Occult Blood Urine Nitrate Urine Bilirubin Urine Urobilinogen Ur Leukocyte Esterase Urine RBC Urine WBC Urine Bacteria Ur Culture Indicated? Micro UA Comment U Opiates 300ng/mL cut Ur Oxycodone Screen Urine Methadone Screen Ur Barbiturates Screen U Tricyclic Antidepress Ur Phencyclidine Scrn Ur Amphetamines Screen U Methamphetamines Scrn Ur MDMA Scrn (Ecstasy) U Benzodiazepines Scrn Urine Cocaine Screen U Marijuana (THC) Screen Chlamy pneumoniae PCR Adenovirus (PCR) B.parapertussis DNA PCR Coronavirus OC43 (PCR) Coronavirus HKU1 (PCR) Coronavirus 229E (PCR) SARS-CoV-2 (PCR) Coronavirus NL63 (PCR) Human Metapneumovir PCR Influenza Type A (PCR) Influenza Type B (PCR) M. pneumoniae (PCR) Parainfluenza 1 (PCR) Parainfluenza 2 (PCR) Parainfluenza 3 (PCR) Parainfluenza 4 (PCR) RSV (PCR) Entero/Rhino (PCR) 04/28/20 04/28/20 04/28/20 13:10 13:10 13:35 WBC RBC Hgb Hct MCV MCH MCHC RDW Plt Count Neut % (Auto) Lymph % (Auto) [place] % (Auto) Eos % (Auto) Baso % (Auto) Lymph # (Auto) [place] # (Auto) Baso # (Auto) Total Counted Seg Neutrophils % Band Neutrophils % Lymphocytes % (Manual) Monocytes % (Manual) Metamyelocytes % Neutrophils # (Manual) RBC Morphology PT INR APTT Sodium Potassium Chloride Carbon Dioxide BUN Creatinine Estimated GFR BUN/Creatinine Ratio Glucose Lactate 1.4 Calcium Total Bilirubin AST ALT Alkaline Phosphatase Total Creatine Kinase CK-MB (CK-2) CK-MB (CK-2) Rel Index Troponin I Total Protein Albumin Globulin Albumin/Globulin Ratio Lipase Procalcitonin 2.92 H Urine Color Urine Appearance Urine pH Ur Specific [place] Urine Protein Urine Glucose (UA) Urine Ketones Urine Occult Blood Urine Nitrate Urine Bilirubin Urine Urobilinogen Ur Leukocyte Esterase Urine RBC Urine WBC Urine Bacteria Ur Culture Indicated? Micro UA Comment U Opiates 300ng/mL cut Ur Oxycodone Screen Urine Methadone Screen Ur Barbiturates Screen U Tricyclic Antidepress Ur Phencyclidine Scrn Ur Amphetamines Screen U Methamphetamines Scrn Ur MDMA Scrn (Ecstasy) U Benzodiazepines Scrn Urine Cocaine Screen U Marijuana (THC) Screen Chlamy pneumoniae PCR Adenovirus (PCR) B.parapertussis DNA PCR Coronavirus OC43 (PCR) Coronavirus HKU1 (PCR) Coronavirus 229E (PCR) SARS-CoV-2 (PCR) Negative Coronavirus NL63 (PCR) Human Metapneumovir PCR Influenza Type A (PCR) Influenza Type B (PCR) M. pneumoniae (PCR) Parainfluenza 1 (PCR) Parainfluenza 2 (PCR) Parainfluenza 3 (PCR) Parainfluenza 4 (PCR) RSV (PCR) Entero/Rhino (PCR) 04/28/20 04/28/20 04/28/20 15:27 15:27 15:27 WBC RBC Hgb Hct MCV MCH MCHC RDW Plt Count Neut % (Auto) Lymph % (Auto) [place] % (Auto) Eos % (Auto) Baso % (Auto) Lymph # (Auto) [place] # (Auto) Baso # (Auto) Total Counted Seg Neutrophils % Band Neutrophils % Lymphocytes % (Manual) Monocytes % (Manual) Metamyelocytes % Neutrophils # (Manual) RBC Morphology PT INR APTT Sodium Potassium Chloride Carbon Dioxide BUN Creatinine Estimated GFR BUN/Creatinine Ratio Glucose Lactate Calcium Total Bilirubin AST ALT Alkaline Phosphatase Total Creatine Kinase CK-MB (CK-2) CK-MB (CK-2) Rel Index Troponin I Total Protein Albumin Globulin Albumin/Globulin Ratio Lipase Procalcitonin Urine Color Yellow Urine Appearance Clear Urine pH 7.0 Ur Specific [place] <=1.005 Urine Protein Negative Urine Glucose (UA) Negative Urine Ketones Negative Urine Occult Blood Negative Urine Nitrate Negative Urine Bilirubin Negative Urine Urobilinogen 0.2 Ur Leukocyte Esterase Negative Urine RBC None seen Urine WBC None seen Urine Bacteria None seen Ur Culture Indicated? Cult not indicated Micro UA Comment Microscopic normal U Opiates 300ng/mL cut Positive H Ur Oxycodone Screen Negative Urine Methadone Screen Negative Ur Barbiturates Screen Negative U Tricyclic Antidepress Negative Ur Phencyclidine Scrn Negative Ur Amphetamines Screen Positive H U Methamphetamines Scrn Positive H Ur MDMA Scrn (Ecstasy) Negative U Benzodiazepines Scrn Negative Urine Cocaine Screen Negative U Marijuana (THC) Screen Negative Chlamy pneumoniae PCR Not detected Adenovirus (PCR) Not detected B.parapertussis DNA PCR Not detected Coronavirus OC43 (PCR) Not detected Coronavirus HKU1 (PCR) Not detected Coronavirus 229E (PCR) Not detected SARS-CoV-2 (PCR) Not detected Coronavirus NL63 (PCR) Not detected Human Metapneumovir PCR Not detected Influenza Type A (PCR) Not detected Influenza Type B (PCR) Not detected M. pneumoniae (PCR) Not detected Parainfluenza 1 (PCR) Not detected Parainfluenza 2 (PCR) Not detected Parainfluenza 3 (PCR) Not detected Parainfluenza 4 (PCR) Not detected RSV (PCR) Not detected Entero/Rhino (PCR) Not detected Assessment & Plan Assessment & Plan narrative: This patient requires acute care inpatient hospital management for left lower lobe pneumonia with sepsis. The patient is at much higher risk for medical and surgical complications because of his substance abuse of methamphetamines, tobacco and alcohol abuse. These factors increase the difficulty and complexity of medical interventions and increases the chances of poor outcomes such as morbidity and mortality, as well as complications such as septic shock, pleural effusion and DVT/PE. The patient's tobacco and substance abuse will impact his oxygenation, which will likely contribute to his pneumonia. SOFA Score of 4 in ER. 1. Acute Left lower lobe pneumonia, likely bacterial community-acquired versus aspiration due to substance abuse, secondary sepsis acute, present on admission - temperature of 98.8?, BP 153/73, HR to 126, RR 13, O2 saturation on room air 100%, WBC 31.0 with bands of 13 left shift, hemoglobin 12.6, hematocrit 37.4, procalcitonin 2.92, CK-MB 0.4, lipase 19. PT 18/INR 1.6, glucose 120, total bilirubin 2.6 -CT Chest/ABD/Pelvis:Moderate to large sized airspace opacity in medial right lower lobe/right retrocardiac space extending to right infrahilar region suggestive of right lower lobe infiltrate. Left lung is clear. No pleural effusion or pneumothorax. Airway is patent. Enlarged mediastinal and right hilar lymph nodes suggestive of reactive inflammatory nodes. No acute inflammatory process is seen in abdomen or pelvis. No free fluid or free air. Normal appendix. Hepatic steatosis -initial SOFA Score 4 -patient to be monitored on [facility] medicine, vital signs q.4 hours, intake and output monitored Q shift, weight measure daily, diet: Heart healthy -IV fluid: Normal saline 150 cc an hour, current vitals temp 99.1?, BP 184/117, pulse 106, RR 16, O2 saturation 99% on room air Supplemental oxygen by mask to maintain SaO2 greater than 90%,-Cardizem 20 mg IV ordered stat -will distress will implement provide oral prednisone daily and DuoNebs as needed q.4 hours as needed with respiratory consult -medications and IV fluids provided in the emergency room: Patient fluid resuscitation per sepsis bundle started in ER, started on vancomycin and piperacillin, respiratory panel negative in ER -labs ordered: CMP CBC, Mag, A1c, ABGs, amylase, lipase, thrombin time, troponin, proBNP, D-dimer -continue vancomycin per pharmacy and piperacillin 3.375 g q.6 hours -consults ordered physical therapy, occupational therapy. -prevention vaccine- Flu recommended 2. New onset hypertension, acute, present on admission -provided for Cardizem 20 mg IV stat order, nurse rechecked blood pressure found to be 159/78 so instructed her to hold the Cardizem, ordered lisinopril 30 mg p.o. daily starting at 9:00 a.m.-patient is stable and asymptomatic 3. Polysubstance abuse, acute, present on admission, patient denies -will request patient education regarding polysubstance use. -will monitor for cardiac and pulmonary involvement contributing to admitting condition. Code status: Full Surrogate/plan of care: Gena Khan, father located in [facility] PCR: Negative VTE prophylaxis: Heparin 5000 units b.i.d. Scores GCS Nathaniel coma scale eye opening: Spontaneous Nathaniel coma scale verbal response: Orientated [place] coma scale motor response: Obey commands [place] coma scale total score: 15 SOFA PaO2/FIO2: < 300 mmHg Platelets: >= 150 Bilirubin: 2.0-5.9 mg/dL Hypotension: MAP >= 70 mmHg [place] Coma Scale: 15 Renal: < 1.2 mg/dL SOFA Score: 4
[2020-04-29] MEDS: dilTIAZem 5 MG/ML SDV 20 MG IV (05:32)
--- NOTE | 2020-04-29 06:34 | PC.NURSE ---
pt's bp was 184/17 around 0530 when the aid checked pt's vitals. Provider was notified and the provided decided to change PO diltiazem order to IV. No doses of diltiazem was given because pt's blood pressure was rechecked prior to administration and had come back down to 159/97 where it has been sitting. Both arms were checked and bp was about the same:Left arm was 159/97 and right arm was 159/100. Provider was notified that diltiazem was not given and provider said to wait and administer lisinopril at the 0900 med time instead of diltiazem. Pt was sleeping in bed and was not symptomatic throughout.
[2020-04-29 06:46] LABS: Hemoglobin 12.5 g/dL (13.5-17.5); Mean Corpuscular HGB Conc 32.8 % (30-36); Mean Corpuscular Hemoglobin 31.1 PG (26-34); Mean Corpuscular Volume 94.9 fL (80-100); Platelet Count 298 X10^3/uL (150-400); Red Blood Cell Count 4.01 X10^6/uL (4.5-5.9); Red Cell Distribution Width 12.2 % (11.6-14.8)
[2020-04-29 06:56] LABS: Add Manual Diff / Slide Review YES; White Blood Cell Count 34.1 X10^3/uL (4.5-11.0)
[2020-04-29 07:00] LABS: Alanine Aminotransferase 43 IU/L (<50); Albumin 3.8 g/dL (3.5-5.0); Albumin Globulin Ratio 1.1 (1.0-2.8); Alkaline Phosphatase 112 U/L (38-126); Amylase 273 U/L (30-110); Aspartate Aminotransferase 38 IU/L (17-59); BUN Creatinine Ratio 10.9 (6-22); Bilirubin Total 2.4 mg/dL (0.2-1.3); Blood Urea Nitrogen 13 mg/dL (9-20); Calcium 10.1 mg/dL (8.4-10.2); Carbon Dioxide 25 mmol/L (22-32); Chloride 105 mmol/L (98-107); Creatine Kinase 76 U/L (55-170); Estimated Glomerular Filt Rate > 60.0 mL/min (>60); Globulin 3.6 g/dL (1.7-4.1); Glucose 94 mg/dL (70-100); HEMOLYSIS < 15 (0-50); Lipase 15 U/L (23-300); Potassium 4.6 mmol/L (3.4-5.1); Sodium 135 mmol/L (137-145); Total Protein 7.4 g/dL (6.3-8.2)
[2020-04-29 07:03] LABS: Hemoglobin A1C% w Est Avg Glu 4.5 % (4.0-6.0)
[2020-04-29 07:09] LABS: PTT Partial Thromboplastin Tim 39 SECONDS (26.4-36.2)
[2020-04-29 07:10] LABS: NT-proBNP (BNP-Adult 18+) 1160 pg/mL (<125); Troponin I 0.014 ng/mL (0.01-0.034)
[2020-04-29 07:29] LABS: D Dimer 884 ng/mL (<230)
[2020-04-29] MEDS: HEPARIN 5,000 UNIT/ML VIAL 5000 UNIT SUBCUT ×2 (07:50→20:58)
[2020-04-29] MEDS: lisinopriL 10 MG TABLET 30 MG PO (07:50)
[2020-04-29 07:52] LABS: Neutrophils Absolute Manual 31713 /uL (3000-5900); Total Cells Counted 100
[2020-04-29 07:53] LABS: RBC Morphology Normal Morphology
[2020-04-29 07:54] LABS: Dohle Bodies 2+
[2020-04-29] MEDS: METOPROLOL ER 50 MG TABLET PO (12:36)
--- NOTE | 2020-04-29 13:47 | PM.PN.1 ---
Subjective Subjective Date Patient Seen: 04/29/20 Interval history: Patient is 34-year-old male who was admitted to the hospital for community-acquired pneumonia. Chest x-ray confirmed of left lower lobe pneumonia. The patient complains of bilateral flank pain. He has no cough. Overall he continues to feel poorly. He was started on IV antibiotics. Exam Vital Signs (past 8 hours): - 04/29/20 07:10 04/29/20 07:50 04/29/20 08:03 Temperature 97.7 F Pulse Rate 96 H 96 H Respiratory Rate 24 Blood Pressure 183/113 H 183/113 H Pulse Oximetry 95 95 04/29/20 08:53 04/29/20 09:25 04/29/20 11:05 Temperature 97.4 F L Pulse Rate 86 Respiratory Rate 24 Blood Pressure 163/105 H 188/34 H Pulse Oximetry 95 99 04/29/20 11:23 04/29/20 12:36 04/29/20 13:24 Temperature Pulse Rate 90 106 H Respiratory Rate Blood Pressure 168/109 H 170/116 H 150/100 H Pulse Oximetry Oxygen Delivery Method Room Air Oxygen Flow Rate 0 Narrative Exam Narrative: Ill-appearing male lying in bed uncomfortable Lungs: Decreased breath sounds with right basilar crackles Cardiac exam: Tachycardic regular rate and rhythm normal S1-S2 Abdomen: Soft nontender nondistended, bilateral CVA tenderness left greater than right Extremities: No edema Objective Labs Result Diagrams: 04/29/20 06:22 04/29/20 06:22 Labs: Laboratory Results - last 24 hr 04/28/20 04/28/20 04/28/20 13:10 13:10 13:10 WBC RBC Hgb Hct MCV MCH MCHC RDW Plt Count Neut % (Auto) Lymph % (Auto) [place] % (Auto) Eos % (Auto) Baso % (Auto) Lymph # (Auto) [place] # (Auto) Baso # (Auto) Total Counted 100 Seg Neutrophils % 72.0 H Band Neutrophils % 13.0 H Lymphocytes % (Manual) 4.0 L Monocytes % (Manual) 9.0 Metamyelocytes % 2.0 H Neutrophils # (Manual) 93862 H Dohle Bodies Plt Morphology Comment RBC Morphology Normal morphology APTT D-Dimer Sodium Potassium Chloride Carbon Dioxide BUN Creatinine Estimated GFR BUN/Creatinine Ratio Glucose Hemoglobin A1c Lactate Calcium Magnesium Total Bilirubin AST ALT Alkaline Phosphatase Total Creatine Kinase CK-MB (CK-2) 0.52 CK-MB (CK-2) Rel Index 0.4 L Troponin I < 0.012 NT-Pro-B Natriuret Pep Total Protein Albumin Globulin Albumin/Globulin Ratio Amylase Lipase Procalcitonin 2.92 H Urine Color Urine Appearance Urine pH Ur Specific [place] Urine Protein Urine Glucose (UA) Urine Ketones Urine Occult Blood Urine Nitrate Urine Bilirubin Urine Urobilinogen Ur Leukocyte Esterase Urine RBC Urine WBC Urine Bacteria Ur Culture Indicated? Micro UA Comment U Opiates 300ng/mL cut Ur Oxycodone Screen Urine Methadone Screen Ur Barbiturates Screen U Tricyclic Antidepress Ur Phencyclidine Scrn Ur Amphetamines Screen U Methamphetamines Scrn Ur MDMA Scrn (Ecstasy) U Benzodiazepines Scrn Urine Cocaine Screen U Marijuana (THC) Screen Chlamy pneumoniae PCR Adenovirus (PCR) B.parapertussis DNA PCR Coronavirus OC43 (PCR) Coronavirus HKU1 (PCR) Coronavirus 229E (PCR) SARS-CoV-2 (PCR) Coronavirus NL63 (PCR) Human Metapneumovir PCR Influenza Type A (PCR) Influenza Type B (PCR) M. pneumoniae (PCR) Parainfluenza 1 (PCR) Parainfluenza 2 (PCR) Parainfluenza 3 (PCR) Parainfluenza 4 (PCR) RSV (PCR) Entero/Rhino (PCR) 04/28/20 04/28/20 04/28/20 13:10 13:35 15:27 WBC RBC Hgb Hct MCV MCH MCHC RDW Plt Count Neut % (Auto) Lymph % (Auto) [place] % (Auto) Eos % (Auto) Baso % (Auto) Lymph # (Auto) [place] # (Auto) Baso # (Auto) Total Counted Seg Neutrophils % Band Neutrophils % Lymphocytes % (Manual) Monocytes % (Manual) Metamyelocytes % Neutrophils # (Manual) Dohle Bodies Plt Morphology Comment RBC Morphology APTT D-Dimer Sodium Potassium Chloride Carbon Dioxide BUN Creatinine Estimated GFR BUN/Creatinine Ratio Glucose Hemoglobin A1c Lactate 1.4 Calcium Magnesium Total Bilirubin AST ALT Alkaline Phosphatase Total Creatine Kinase CK-MB (CK-2) CK-MB (CK-2) Rel Index Troponin I NT-Pro-B Natriuret Pep Total Protein Albumin Globulin Albumin/Globulin Ratio Amylase Lipase Procalcitonin Urine Color Urine Appearance Urine pH Ur Specific [place] Urine Protein Urine Glucose (UA) Urine Ketones Urine Occult Blood Urine Nitrate Urine Bilirubin Urine Urobilinogen Ur Leukocyte Esterase Urine RBC Urine WBC Urine Bacteria Ur Culture Indicated? Micro UA Comment U Opiates 300ng/mL cut Ur Oxycodone Screen Urine Methadone Screen Ur Barbiturates Screen U Tricyclic Antidepress Ur Phencyclidine Scrn Ur Amphetamines Screen U Methamphetamines Scrn Ur MDMA Scrn (Ecstasy) U Benzodiazepines Scrn Urine Cocaine Screen U Marijuana (THC) Screen Chlamy pneumoniae PCR Not detected Adenovirus (PCR) Not detected B.parapertussis DNA PCR Not detected Coronavirus OC43 (PCR) Not detected Coronavirus HKU1 (PCR) Not detected Coronavirus 229E (PCR) Not detected SARS-CoV-2 (PCR) Negative Not detected Coronavirus NL63 (PCR) Not detected Human Metapneumovir PCR Not detected Influenza Type A (PCR) Not detected Influenza Type B (PCR) Not detected M. pneumoniae (PCR) Not detected Parainfluenza 1 (PCR) Not detected Parainfluenza 2 (PCR) Not detected Parainfluenza 3 (PCR) Not detected Parainfluenza 4 (PCR) Not detected RSV (PCR) Not detected Entero/Rhino (PCR) Not detected 04/28/20 04/28/20 04/29/20 15:27 15:27 06:22 WBC 34.1 H* RBC 4.01 L Hgb 12.5 L Hct 38.0 L MCV 94.9 MCH 31.1 MCHC 32.8 RDW 12.2 Plt Count 298 Neut % (Auto) Not Reportable Lymph % (Auto) Not Reportable [place] % (Auto) Not Reportable Eos % (Auto) Not Reportable Baso % (Auto) Not Reportable Lymph # (Auto) Not Reportable [place] # (Auto) Not Reportable Baso # (Auto) Not Reportable Total Counted 100 Seg Neutrophils % 55.0 Band Neutrophils % 38.0 H Lymphocytes % (Manual) 3.0 L Monocytes % (Manual) 4.0 Metamyelocytes % Neutrophils # (Manual) 51576 H Dohle Bodies 2+ H Plt Morphology Comment RBC Morphology Normal morphology APTT D-Dimer Sodium Potassium Chloride Carbon Dioxide BUN Creatinine Estimated GFR BUN/Creatinine Ratio Glucose Hemoglobin A1c Lactate Calcium Magnesium Total Bilirubin AST ALT Alkaline Phosphatase Total Creatine Kinase CK-MB (CK-2) CK-MB (CK-2) Rel Index Troponin I NT-Pro-B Natriuret Pep Total Protein Albumin Globulin Albumin/Globulin Ratio Amylase Lipase Procalcitonin Urine Color Yellow Urine Appearance Clear Urine pH 7.0 Ur Specific [place] <=1.005 Urine Protein Negative Urine Glucose (UA) Negative Urine Ketones Negative Urine Occult Blood Negative Urine Nitrate Negative Urine Bilirubin Negative Urine Urobilinogen 0.2 Ur Leukocyte Esterase Negative Urine RBC None seen Urine WBC None seen Urine Bacteria None seen Ur Culture Indicated? Cult not indicated Micro UA Comment Microscopic normal U Opiates 300ng/mL cut Positive H Ur Oxycodone Screen Negative Urine Methadone Screen Negative Ur Barbiturates Screen Negative U Tricyclic Antidepress Negative Ur Phencyclidine Scrn Negative Ur Amphetamines Screen Positive H U Methamphetamines Scrn Positive H Ur MDMA Scrn (Ecstasy) Negative U Benzodiazepines Scrn Negative Urine Cocaine Screen Negative U Marijuana (THC) Screen Negative Chlamy pneumoniae PCR Adenovirus (PCR) B.parapertussis DNA PCR Coronavirus OC43 (PCR) Coronavirus HKU1 (PCR) Coronavirus 229E (PCR) SARS-CoV-2 (PCR) Coronavirus NL63 (PCR) Human Metapneumovir PCR Influenza Type A (PCR) Influenza Type B (PCR) M. pneumoniae (PCR) Parainfluenza 1 (PCR) Parainfluenza 2 (PCR) Parainfluenza 3 (PCR) Parainfluenza 4 (PCR) RSV (PCR) Entero/Rhino (PCR) 04/29/20 04/29/20 04/29/20 06:22 06:22 06:22 WBC RBC Hgb Hct MCV MCH MCHC RDW Plt Count Neut % (Auto) Lymph % (Auto) [place] % (Auto) Eos % (Auto) Baso % (Auto) Lymph # (Auto) [place] # (Auto) Baso # (Auto) Total Counted Seg Neutrophils % Band Neutrophils % Lymphocytes % (Manual) Monocytes % (Manual) Metamyelocytes % Neutrophils # (Manual) Dohle Bodies Plt Morphology Comment RBC Morphology APTT D-Dimer 884 H Sodium 135 L Potassium 4.6 Chloride 105 Carbon Dioxide 25 BUN 13 Creatinine 1.19 Estimated GFR > 60.0 BUN/Creatinine Ratio 10.9 Glucose 94 Hemoglobin A1c 4.5 Lactate Calcium 10.1 Magnesium 2.0 Total Bilirubin 2.4 H AST 38 ALT 43 Alkaline Phosphatase 112 Total Creatine Kinase 76 CK-MB (CK-2) TNP CK-MB (CK-2) Rel Index TNP Troponin I 0.014 NT-Pro-B Natriuret Pep 1160 H Total Protein 7.4 Albumin 3.8 Globulin 3.6 Albumin/Globulin Ratio 1.1 Amylase 273 H Lipase 15 L Procalcitonin Urine Color Urine Appearance Urine pH Ur Specific [place] Urine Protein Urine Glucose (UA) Urine Ketones Urine Occult Blood Urine Nitrate Urine Bilirubin Urine Urobilinogen Ur Leukocyte Esterase Urine RBC Urine WBC Urine Bacteria Ur Culture Indicated? Micro UA Comment U Opiates 300ng/mL cut Ur Oxycodone Screen Urine Methadone Screen Ur Barbiturates Screen U Tricyclic Antidepress Ur Phencyclidine Scrn Ur Amphetamines Screen U Methamphetamines Scrn Ur MDMA Scrn (Ecstasy) U Benzodiazepines Scrn Urine Cocaine Screen U Marijuana (THC) Screen Chlamy pneumoniae PCR Adenovirus (PCR) B.parapertussis DNA PCR Coronavirus OC43 (PCR) Coronavirus HKU1 (PCR) Coronavirus 229E (PCR) SARS-CoV-2 (PCR) Coronavirus NL63 (PCR) Human Metapneumovir PCR Influenza Type A (PCR) Influenza Type B (PCR) M. pneumoniae (PCR) Parainfluenza 1 (PCR) Parainfluenza 2 (PCR) Parainfluenza 3 (PCR) Parainfluenza 4 (PCR) RSV (PCR) Entero/Rhino (PCR) 04/29/20 06:22 WBC RBC Hgb Hct MCV MCH MCHC RDW Plt Count Neut % (Auto) Lymph % (Auto) [place] % (Auto) Eos % (Auto) Baso % (Auto) Lymph # (Auto) [place] # (Auto) Baso # (Auto) Total Counted Seg Neutrophils % Band Neutrophils % Lymphocytes % (Manual) Monocytes % (Manual) Metamyelocytes % Neutrophils # (Manual) Dohle Bodies Plt Morphology Comment RBC Morphology APTT 39 H D-Dimer Sodium Potassium Chloride Carbon Dioxide BUN Creatinine Estimated GFR BUN/Creatinine Ratio Glucose Hemoglobin A1c Lactate Calcium Magnesium Total Bilirubin AST ALT Alkaline Phosphatase Total Creatine Kinase CK-MB (CK-2) CK-MB (CK-2) Rel Index Troponin I NT-Pro-B Natriuret Pep Total Protein Albumin Globulin Albumin/Globulin Ratio Amylase Lipase Procalcitonin Urine Color Urine Appearance Urine pH Ur Specific [place] Urine Protein Urine Glucose (UA) Urine Ketones Urine Occult Blood Urine Nitrate Urine Bilirubin Urine Urobilinogen Ur Leukocyte Esterase Urine RBC Urine WBC Urine Bacteria Ur Culture Indicated? Micro UA Comment U Opiates 300ng/mL cut Ur Oxycodone Screen Urine Methadone Screen Ur Barbiturates Screen U Tricyclic Antidepress Ur Phencyclidine Scrn Ur Amphetamines Screen U Methamphetamines Scrn Ur MDMA Scrn (Ecstasy) U Benzodiazepines Scrn Urine Cocaine Screen U Marijuana (THC) Screen Chlamy pneumoniae PCR Adenovirus (PCR) B.parapertussis DNA PCR Coronavirus OC43 (PCR) Coronavirus HKU1 (PCR) Coronavirus 229E (PCR) SARS-CoV-2 (PCR) Coronavirus NL63 (PCR) Human Metapneumovir PCR Influenza Type A (PCR) Influenza Type B (PCR) M. pneumoniae (PCR) Parainfluenza 1 (PCR) Parainfluenza 2 (PCR) Parainfluenza 3 (PCR) Parainfluenza 4 (PCR) RSV (PCR) Entero/Rhino (PCR) [facility] Medical History (Updated 04/29/20 @ 05:11 by JUAN MANUEL Ramon) Methamphetamine abuse Narcotic abuse Sleep apnea Tobacco abuse Surgical History (Updated 04/29/20 @ 05:12 by JUAN MANUEL Ramon) Hx of hand surgery Family History (Updated 04/29/20 @ 05:13 by JUAN MANUEL Ramon) Father Pancreatic cancer Social History household members: none Smoking Status: Current every day smoker Assessment & Plan Assessment & Plan narrative: Assessment & Plan narrative: This patient requires acute care inpatient hospital management for left lower lobe pneumonia with sepsis. The patient is at much higher risk for medical and surgical complications because of his substance abuse of methamphetamines, tobacco and alcohol abuse. These factors increase the difficulty and complexity of medical interventions and increases the chances of poor outcomes such as morbidity and mortality, as well as complications such as septic shock, pleural effusion and DVT/PE. The patient's tobacco and substance abuse will impact his oxygenation, which will likely contribute to his pneumonia. SOFA Score of 4 in ER. 1. Left Lower Lobe Pneumonia , present on admission Acute Left lower lobe pneumonia, likely bacterial community-acquired - temperature of 98.8?, BP 153/73, HR to 126, RR 13, O2 saturation on room air 100%, WBC 31.0 with bands of 13 left shift, hemoglobin 12.6, hematocrit 37.4, procalcitonin 2.92, CK-MB 0.4, lipase 19. PT 18/INR 1.6, glucose 120, total bilirubin 2.6 -CT Chest/ABD/Pelvis:Moderate to large sized airspace opacity in medial right lower lobe/right retrocardiac space extending to right infrahilar region suggestive of right lower lobe infiltrate. Left lung is clear. No pleural effusion or pneumothorax. Airway is patent. Enlarged mediastinal and right hilar lymph nodes suggestive of reactive inflammatory nodes. No acute inflammatory process is seen in abdomen or pelvis. No free fluid or free air. Normal appendix. Hepatic steatosis -initial SOFA Score 4 -patient to be monitored on tele medicine, vital signs q.4 hours, intake and output monitored Q shift, weight measure daily, diet: Heart healthy -IV fluid: Normal saline 150 cc an hour, current vitals temp 99.1?, BP 184/117, pulse 106, RR 16, O2 saturation 99% on room air Supplemental oxygen by mask to maintain SaO2 greater than 90%,-Cardizem 20 mg IV ordered stat -will distress will implement provide oral prednisone daily and DuoNebs as needed q.4 hours as needed with respiratory consult -medications and IV fluids provided in the emergency room: Patient fluid resuscitation per sepsis bundle started in ER, started on vancomycin and piperacillin, respiratory panel negative in ER -labs ordered: CMP CBC, Mag, A1c, ABGs, amylase, lipase, thrombin time, troponin, proBNP, D-dimer -continue vancomycin per pharmacy and piperacillin 3.375 g q.6 hours -consults ordered physical therapy, occupational therapy. -prevention vaccine- Flu recommended -will repeat procalcitonin, WBC and chest x-ray in the morning -repeat blood:, continue Zosyn will DC vancomycin if MRSA swab is negative 2. New onset hypertension, acute, present on admission -provided for Cardizem 20 mg IV stat order, nurse rechecked blood pressure found to be 159/78 so instructed her to hold the Cardizem, ordered lisinopril 30 mg p.o. daily starting at 9:00 a.m.-patient is stable and asymptomatic 3. Polysubstance abuse, acute, present on admission, patient denies -will request patient education regarding polysubstance use. -will monitor for cardiac and pulmonary involvement contributing to admitting condition.
--- NOTE | 2020-04-29 15:16 | CM.IDA ---
Initial DCP Assessment Note Patient is a 34 yo male, resident of [place]. Patient presents feeling sick and found to have left lower love pneumonia w/sepsis. Pt w/poly substance abuse to include alcohol, tobacco and methamphetamines (tox +for meth,patient denied use upon admission) PCP unknown, patient listed as self pay. Registration note states patient offered rossi application, patient denies having GENNARO Attempted assessment x2 this morning and patient was sleeping soundly, did not arouse to this INHALATION THERAPY TEACHER's voice.. patient literally sleeping w/one eye open, snoring. Upon another attempt, found kate Latonya at bedside, she explained that patient is a very hard sleeper at home. Latonya lives w/her mother and her 7 month old dtr. Latonya and patient have been seeing each other for approx one year. 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 Gf admits that when patient begins to feel better and wakes up he may want to leave the hospital, gf will try to encourage patient to stay for his entire abx course, as ordered by the MD. Gf does not endorse any drug use, by her or patient. This INHALATION THERAPY TEACHER following closely and will attempt to speak w/patient tomorrow once feeling better. If unable to meet w/ patient, Plan: return home. [facility] care application provided by registration today. Updated MAXIME Langley. ELLIOT Aguila
[2020-04-29 17:05] LABS: Vancomycin Trough 7.2 ug/mL (10-20)
[2020-04-29] MEDS: METOPROLOL TARTRATE 5 MG/5 ML INJ IV (20:44)
[2020-04-30] VITALS (8 sets, daily range): BP systolic 154–163; BP diastolic 100–114; PULSE 75–89; RESP 16–19; TEMP 36.7–37.6; O2SAT 97–100
[2020-04-30] MEDS: VANCOMYCIN 1,500 MG/300 ML PIGGYBACK 200 MG IV ×2 (00:06→09:15)
[2020-04-30] MEDS: SODIUM CHLORIDE 0.9% 1,000 ML 150 ML IV ×2 (00:06→07:43)
[2020-04-30] MEDS: ACETAMINOPHEN 325 MG TABLET 650 MG PO (01:04)
[2020-04-30] MEDS: PIPERACILLIN-TAZO 3.375 GM/50 ML FROZ.PIGGY IV ×3 (02:54→13:12)
[2020-04-30] MEDS: METOPROLOL TARTRATE 5 MG/5 ML INJ IV ×4 (05:36→13:01)
[2020-04-30 07:21] LABS: Add Manual Diff / Slide Review NO; Basophils Absolute Auto 100 /uL (0-100); Basophils Percent Auto 0.5 % (0-2); Eosinophils Absolute Auto 100 /uL (0-450); Eosinophils Percent Auto 0.4 % (2-4); Hematocrit 35.8 % (41-53); Hemoglobin 11.8 g/dL (13.5-17.5); Lymphocytes Absolute Auto 2300 /uL (1100-4500); Lymphocytes Percent Auto 11.4 % (25-40); Mean Corpuscular HGB Conc 32.9 % (30-36); Mean Corpuscular Hemoglobin 31.2 PG (26-34); Mean Corpuscular Volume 94.8 fL (80-100); Monocytes Absolute Auto 1200 /uL (0-900); Monocytes Percent Auto 5.9 % (3-14); Neutrophils Absolute Auto 16300 /uL (1500-7000); Neutrophils Percent Auto 81.8 % (50-75); Platelet Count 359 X10^3/uL (150-400); Red Blood Cell Count 3.77 X10^6/uL (4.5-5.9); Red Cell Distribution Width 12.5 % (11.6-14.8); White Blood Cell Count 19.9 X10^3/uL (4.5-11.0)
[2020-04-30 07:26] LABS: Alanine Aminotransferase 30 IU/L (<50); Albumin 3.7 g/dL (3.5-5.0); Alkaline Phosphatase 103 U/L (38-126); Aspartate Aminotransferase 20 IU/L (17-59); Bilirubin Total 0.8 mg/dL (0.2-1.3); Blood Urea Nitrogen 10 mg/dL (9-20); Calcium 10.6 mg/dL (8.4-10.2); Carbon Dioxide 25 mmol/L (22-32); Chloride 109 mmol/L (98-107); Estimated Glomerular Filt Rate > 60.0 mL/min (>60); Globulin 3.8 g/dL (1.7-4.1); Glucose 139 mg/dL (70-100); HEMOLYSIS < 15 (0-50); Sodium 136 mmol/L (137-145); Total Protein 7.5 g/dL (6.3-8.2)
[2020-04-30 07:40] LABS: Creatine Kinase 31 U/L (55-170)
[2020-04-30 07:53] LABS: Troponin I 0.012 ng/mL (0.01-0.034)
[2020-04-30] MEDS: HEPARIN 5,000 UNIT/ML VIAL 5000 UNIT SUBCUT (09:15)
[2020-04-30] MEDS: METOPROLOL ER 50 MG TABLET PO (09:16)
[2020-04-30] MEDS: lisinopriL 10 MG TABLET 30 MG PO (09:16)
--- NOTE | 2020-04-30 13:31 | PM.PN.1 ---
Subjective Subjective Date Patient Seen: 04/30/20 Interval history: Patient reports he feels significantly improved today. He no longer has any back pain. He has no cough or shortness of breath. The patient does not have a history of hypertension however he has not been seen by primary care provider. He has improvement of his white count, however his blood pressure remains markedly elevated. Exam Vital Signs (past 8 hours): - 04/30/20 07:56 04/30/20 08:22 04/30/20 09:16 Temperature 98.8 F Pulse Rate 83 85 Respiratory Rate 19 Blood Pressure 154/101 H 158/106 H Pulse Oximetry 97 100 04/30/20 10:30 04/30/20 12:32 Temperature 98.1 F Pulse Rate 84 89 Respiratory Rate 16 Blood Pressure 158/112 H 163/114 H Pulse Oximetry 99 Oxygen Delivery Method Room Air Oxygen Flow Rate 0 Narrative Exam Narrative: Pleasant male lying in bed in no obvious distress Lungs: Clear to auscultation Cardiac exam: Regular rate and rhythm normal S1-S2 Abdomen: Soft nontender nondistended Extremities: No edema Objective Labs Result Diagrams: 04/30/20 06:55 04/30/20 06:55 Labs: Laboratory Results - last 24 hr 04/29/20 04/29/20 04/30/20 15:00 16:32 06:55 WBC 19.9 H RBC 3.77 L Hgb 11.8 L Hct 35.8 L MCV 94.8 MCH 31.2 MCHC 32.9 RDW 12.5 Plt Count 359 Neut % (Auto) 81.8 H Lymph % (Auto) 11.4 L [place] % (Auto) 5.9 Eos % (Auto) 0.4 L Baso % (Auto) 0.5 Neut # (Auto) 98582 H Lymph # (Auto) 2300 [place] # (Auto) 1200 H Eos # (Auto) 100 Baso # (Auto) 100 Sodium Potassium Chloride Carbon Dioxide BUN Creatinine Estimated GFR BUN/Creatinine Ratio Glucose Calcium Total Bilirubin AST ALT Alkaline Phosphatase Total Creatine Kinase CK-MB (CK-2) CK-MB (CK-2) Rel Index Troponin I Total Protein Albumin Globulin Albumin/Globulin Ratio Nasal Screen MRSA (PCR) Negative for mrsa Vancomycin Trough 7.2 L 04/30/20 04/30/20 06:55 06:55 WBC RBC Hgb Hct MCV MCH MCHC RDW Plt Count Neut % (Auto) Lymph % (Auto) [place] % (Auto) Eos % (Auto) Baso % (Auto) Neut # (Auto) Lymph # (Auto) [place] # (Auto) Eos # (Auto) Baso # (Auto) Sodium 136 L Potassium 4.0 Chloride 109 H Carbon Dioxide 25 BUN 10 Creatinine 1.11 Estimated GFR > 60.0 BUN/Creatinine Ratio 9.0 Glucose 139 H Calcium 10.6 H Total Bilirubin 0.8 AST 20 ALT 30 Alkaline Phosphatase 103 Total Creatine Kinase 31 L CK-MB (CK-2) TNP CK-MB (CK-2) Rel Index TNP Troponin I 0.012 Total Protein 7.5 Albumin 3.7 Globulin 3.8 Albumin/Globulin Ratio 1.0 Nasal Screen MRSA (PCR) Vancomycin Trough [facility] Medical History (Updated 04/29/20 @ 05:11 by MALLORY Ramon-COLLINS) Methamphetamine abuse Narcotic abuse Sleep apnea Tobacco abuse Surgical History (Updated 04/29/20 @ 05:12 by JUAN MANUEL Ramon) Hx of hand surgery Family History (Updated 04/29/20 @ 05:13 by JUAN MANUEL Ramon) Father Pancreatic cancer Social History household members: none Smoking Status: Current every day smoker Assessment & Plan Assessment & Plan narrative: Impression 1. Left lower lobe pneumonia -patient with left lower lobe pneumonia documented on CT and chest x-ray -no evidence to suggest aspiration -etiology unclear -no evidence of sepsis, currently or present on admission -patient is not hypoxic, he appears to be responding well to antibiotics, will continue Zosyn -MRSA in the nares negative, discontinue vancomycin 2. Hypertension -new onset, poorly controlled -will add amlodipine 10 mg daily, continue lisinopril 40 mg daily, metoprolol 50 mg daily -will obtain a renal ultrasound to rule out renal artery stenosis 3. Polysubstance abuse -patient denies methamphetamine use despite positive UA -patient consult discontinue as this likely may be exacerbating his blood pressure Overall he is making significant improved, anticipate discharge home tomorrow.
[2020-04-30] MEDS: AMLODIPINE 5 MG TABLET 10 MG PO (14:24)
--- NOTE | 2020-04-30 15:35 | CM.DPNOTE ---
DCP Cont Patient awake, alert, and sitting at edge of bed today. This FOOD SAFETY SPECIALIST introduced role. 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 Patient denies drug use, states I am around it. Patient admits to this FOOD SAFETY SPECIALIST that he may be making a few changes because this scared me a bit Patient would like to apply for [employer], he is unsure if he will qualify while he is getting unemployment (?) patient has never seen a doctor. This FOOD SAFETY SPECIALIST strongly encourages this to change upon patient's DC and patient agrees. This FOOD SAFETY SPECIALIST or FOOD SAFETY SPECIALIST team will provide numbers for Rosaura (PCP) and resource for assist in completing the [employer] application- P# [phone] [employer] [place] P# [phone] and [facility] P# [phone] Dr Ambrocio intends to DC patient tomorrow and will prescribe BP meds and abx according [facility]. Patient aware of above and appreciative. Denies further needs ELLIOT Aguila
--- NOTE | 2020-04-30 17:14 | PM.DS.1 ---
History of Present Illness History of Present Illness Date Patient Seen: 04/30/20 Chief complaint: 'feeling sick' Narrative: Patient is a 34-year-old healthy male who presents with generalized body aches and pain ongoing for last couple of days. He states that he has had an ongoing nonproductive cough for the past few days. Generalized body aches, dizziness, headache, and mildly productive cough started yesterday. He has been taking TheraFlu but he did not take any today. He overall feels extremely weak and fatigued with body aches all over. He denies any fever or chills. He has a decrease in appetite. He has no abdominal pain, nausea, vomiting, diarrhea, chest pain, shortness of breath, weakness balance or coordination issues, yellowing of skin. No recent travel, illness, injury or trauma. No painful or frequent urination or bowel change. Patient reports a history of sleep apnea and uses CPAP machine at than that denies any other history drinks approximately 1-2 beers daily smokes half a pack of cigarettes per day and denies substance use the urine tox screen was positive for methamphetamines and narcotics. Patient presented to the ER with a temperature of 98.8?, BP 153/73, HR to 126, RR 13, O2 saturation on room air 100%, WBC 31.0 with bands of 13 left shift, hemoglobin 12.6, hematocrit 37.4, procalcitonin 2.92, CK-MB 0.4, lipase 19. CT Chest/ABD/Pelvis: Demonstrated Moderate to large sized airspace opacity in medial right lower lobe/right retrocardiac space extending to right infrahilar region suggestive of right lower lobe infiltrate. Left lung is clear. No pleural effusion or pneumothorax. Airway is patent. Enlarged mediastinal and right hilar lymph nodes suggestive of reactive inflammatory nodes. Patient was admitted to acute care medical service for left lower lobe pneumonia/sepsis. Discharge Providers Provider Date of admission: 04/28/20 17:16 Discharge Date: 04/30/20 Discharge provider: Saranya Ambrocio MD Summary Hospital Course Discharge Diagnosis: 1. Community Acquired Pneumonia, Bacterial etiology unclear 2. Hypertension, poorly controlled, new diagnosis 3. Polysubstance use Hospital Course: Patient was admitted to the hospital for left lower lobe pneumonia. He complained of back pain and aching all over. The following day his WBC improved from 32 K to 19K. Patient was awake, alert, and able to eat. He was hypertensive. He has no known history of hypertension. Patient does not have a PCP. He left the building to meet a friend and returned thinking he could go back to his room. As he was not hypoxic and felt back to baseline he was discharged home. His medications will be sent to [facility] for [facility]. Patient will follow up with a PCP in [place] for evaluation of his blood pressure and follow up on his pneumonia. Exam Vital Signs (past 8 hours): - 04/30/20 09:16 04/30/20 10:30 04/30/20 12:32 Temperature 98.1 F Pulse Rate 85 84 89 Respiratory Rate 16 Blood Pressure 158/106 H 158/112 H 163/114 H Pulse Oximetry 99 Oxygen Delivery Method Room Air Oxygen Flow Rate 0 Narrative Exam Narrative: pleasant male resting comfortably in No acute distress Lungs: decreased breath sounds but clear to auscultation CV: RRR nl Sl S2 ABd: Soft/ non tender/ non distended Ext: no edema Objective Labs Result Diagrams: 04/30/20 06:55 04/30/20 06:55 Labs: Laboratory Results - last 24 hr 04/30/20 04/30/20 04/30/20 06:55 06:55 06:55 WBC 19.9 H RBC 3.77 L Hgb 11.8 L Hct 35.8 L MCV 94.8 MCH 31.2 MCHC 32.9 RDW 12.5 Plt Count 359 Neut % (Auto) 81.8 H Lymph % (Auto) 11.4 L Callahan % (Auto) 5.9 Eos % (Auto) 0.4 L Baso % (Auto) 0.5 Neut # (Auto) 29412 H Lymph # (Auto) 2300 Callahan # (Auto) 1200 H Eos # (Auto) 100 Baso # (Auto) 100 Sodium 136 L Potassium 4.0 Chloride 109 H Carbon Dioxide 25 BUN 10 Creatinine 1.11 Estimated GFR > 60.0 BUN/Creatinine Ratio 9.0 Glucose 139 H Calcium 10.6 H Total Bilirubin 0.8 AST 20 ALT 30 Alkaline Phosphatase 103 Total Creatine Kinase 31 L CK-MB (CK-2) TNP CK-MB (CK-2) Rel Index TNP Troponin I 0.012 Total Protein 7.5 Albumin 3.7 Globulin 3.8 Albumin/Globulin Ratio 1.0 [facility] Medical History (Updated 04/29/20 @ 05:11 by MALLORY Ramon-COLLINS) Methamphetamine abuse Narcotic abuse Sleep apnea Tobacco abuse Surgical History (Updated 04/29/20 @ 05:12 by JUAN MANUEL Ramon) Hx of hand surgery Family History (Updated 04/29/20 @ 05:13 by JUAN MANUEL Ramon) Father Pancreatic cancer Social History household members: none Smoking Status: Current every day smoker Discharge Assessment & Plan Assessment and Plan Assessment: Community Acquired Pneumonia, Bacterial etiology not clear, present on admission Hypertension, poorly controlled Polysubstance abuse Plan of Treatment: discharge home on medications as prescribed Follow up with PCP in [place] as discussed Discharge Plan Discharge Plan Patient Disposition: Released, Other Provider Discharge Comment: Pt eloped @ 1420. Pt tried to return 1510. Pt discharged by provider [id number]. Discharge orders & Medications Discharge Orders: Discharge (Order); Ordered 04/30/20 Ordered By: Saranya Ambrocio Prescriptions: No Action No Known Home Medications RF: 0
[2020-05-01 04:16] LABS: C-Reactive Protein Quant 31.6 mg/dL (<1.0)
== END 2020-04-30 17:25 | disposition home or self-care (01) | DRG 195 ==
LOC: ED 17:02 → AC 17:17
PROVIDERS: Internal Medicine; Nurse Practitioner Family; Admitting Provider Internal Medicine; Emergency Provider Emergency Medicine; Referring Provider Emergency Medicine; Visit Provider Internal Medicine
DX: J15.9 Unspecified bacterial pneumonia (principal); I10 Essential (primary) hypertension; F19.10 Other psychoactive substance abuse, uncomplicated; F17.210 Nicotine dependence, cigarettes, uncomplicated
CPT/HCPCS: 36415; 71045; 71260; 74177; 80053; 80202; 80305; 81001; 82150; 82550; 82553; 83036; 83605; 83690; 83735; 83880; 84145; 84484; 85007; 85025; 85379; 85610; 85730; 86140; 87040; 87633; 87635; 87797; 93005; 94640; 96361; 96365; 96375; 99284; A9270; J1644; J1885; J2060; J2270; J2543; Q9967